=== PATIENT | male | born 1960 | race African-American/Black ===

== ENCOUNTER 2023-08-14 18:45 | Emergency (ER) | payer MEDICAID, OTHER ==
[~2023-08-14] VITALS: Ht 190.5 cm; Wt 250.0 kg
[2023-08-14 19:05] VITALS: BP 112/72; PULSE 87; RESP 16; O2SAT 96
[2023-08-14] MEDS ORDERED: HYDR25TA5 PO (19:07)
[2023-08-14] MEDS ORDERED: METF-372 PO (19:07)
== END 2023-08-14 19:04 | disposition left against medical advice (07) ==
LOC: ER 18:45
DX: E11.9 Type 2 diabetes mellitus without complications (principal); I10 Essential (primary) hypertension; Z76.0 Encounter for issue of repeat prescription
CPT/HCPCS: 82962